=== PATIENT | male | born 1975 | race Caucasian/White ===

== ENCOUNTER → 2019-11-30 12:06 | Outpatient (BNVA) | payer SELFPAY | PROVIDERS: Family Provider Nurse Practitioner; Visit Provider Nurse Practitioner Family | DX: Z20.2 Contact with and (suspected) exposure to infections with a predominantly sexual mode of transmission (principal) | CPT/HCPCS: 87491; 87591 ==

== ENCOUNTER → 2020-04-07 10:09 | Outpatient (BNVA) | payer OTHER, SELFPAY | PROVIDERS: Family Provider Nurse Practitioner; Visit Provider Nurse Practitioner Family | DX: Z20.828 Contact with and (suspected) exposure to other viral communicable diseases (principal); J06.9 Acute upper respiratory infection, unspecified | CPT/HCPCS: 87635 ==

== ENCOUNTER 2023-11-29 17:11 | Emergency (ER) | payer SELFPAY ==
[2023-11-29 17:19] VITALS: BP 146/89; PULSE 108; RESP 24; TEMP 36.6; O2SAT 98; BMI 29.8
--- NOTE | 2023-11-29 17:28 | XRR_ITS ---
PROCEDURE INFORMATION: Exam: XR Left Knee Exam date and time: 11/29/2023 5:41 PM Age: 48 years old Clinical indication: Injury or trauma; Other: Man vs saw; Patella or knee; Foreign body involvement not specified; Injury details: Lt knee pain; Laceration to medial left knee; Man vs chainsaw; Additional info: Chainsaw laceration TECHNIQUE: Imaging protocol: Radiologic exam of the left knee. Views: 3 views. COMPARISON: No relevant prior studies available. FINDINGS: Bones/joints: No acute fractures or subluxations. Soft tissues: Laceration to the medial knee. No radiopaque foreign bodies. XR/XR knee LT 3V* [id number] IMPRESSION: 1. No acute fractures or subluxations. 2. Laceration to the medial knee. No radiopaque foreign bodies.
--- NOTE | 2023-11-29 17:44 | ED_ITS ---
Documented by User: Stevie Mcdonald DO 12/01/23 13:30 HPI - Wound/Laceration General: Chief Complaint: Wound/Laceration Stated Complaint: left leg injury Time Seen by Provider: 11/29/23 18:37 History of Present Illness: 48-year-old male who presents emergency room after a chainsaw accident. He hit himself with a chainsaw as it was running on the left anterior medial knee. No other injuries. Is unsure of his last tetanus shot. No active bleeding. Related Data Previous Rx's Medication Instructions Recorded doxycycline hyclate 100 mg tablet 100 mg PO BID 7 days #14 tabs 11/29/23 ketorolac 10 mg tablet 10 mg PO TID PRN pain #10 tabs 11/29/23 Allergies Allergy/AdvReac Type Severity Reaction Status Date / Time No Known Allergies Allergy Verified 11/29/23 17:22 [facility] ED PFSH: Social History Smoking and tobacco/nicotine status: current every day tobacco/nicotine user Current gender identity: Male Physical Exam Narrative: EXAM NARRATIVE: Full-thickness laceration anterior medial knee. There is some devascularized tissue at the center of the wound. Wound is 8 cm in length Procedures Laceration Laceration 1: Site: lower extremity (Anterior knee) Side (If applicable): left Description: irregular and contaminated Depth: simple, single layer Local Anesthetic: with epi Pre-repair: wound explored, irrigated extensively, deep structures intact and extensive debridement Skin layer closed with: nylon Size (cm): 4-0 Number of sutures: 1 Technique: running Course Vital Signs: Vital signs: Vital Signs Temperature 97.8 F 11/29/23 17:19 Pulse Rate 88 11/29/23 18:40 Respiratory Rate 20 H 11/29/23 17:58 Blood Pressure 155/98 11/29/23 18:40 Pulse Oximetry 96 11/29/23 18:40 Oxygen Delivery Me thod Room Air 11/29/23 17:19 MDM - Wound/Laceration Medical Decision Making Care signed out to Dr. Gatica at change of shift. See final notes for diagnosis and disposition. Wound irrigated extensively with sterile water. Margins cleaned with Betadine and peroxide. Sutures are in place. He tolerated well. Bandaged. Crutches for wb. he has some at home. sutures out in 10d or so. he received ancef here. minda for home Lab Data Radiology Impressions Knee X-Ray 11/29/23 17:28 IMPRESSION: 1. No acute fractures or subluxations. 2. Laceration to the medial knee. No radiopaque foreign bodies. Discharge Plan Discharge Patient Disposition: Home Clinical Impression: Laceration of knee, left Condition: Stable Prescriptions: New ketorolac 10 mg tablet 10 mg PO TID PRN (Reason: pain) Qty: 10 0RF doxycycline hyclate 100 mg tablet 100 mg PO BID 7 Days Qty: 14 0RF Discharge Orders: Discharge ED (Routine); Ordered 11/29/23 Ordered By: Cuco Gatica Referrals: Wendy Bains, GENERAL TELLER-C [Family Provider] - 7-10 days Patient Instructions: Laceration (ED), Opioid Safety, Pain Management Activity Restrictions/Additional Instructions: Keep wound clean and dry for 24 hours, then you may wash with soap and running water. Do not submerge in a tub, pool, roman, etc. Sutures should come out in 10 days or so. Antibiotics as directed. Crutch as tolerated for weightbearing until pain improves. Limit your squatting, knee bending while sutures are in to prevent breakage. Coding Level of Care Code ED Handkerchief Cutter for Chg Fwd Documented by User: Cuco Gatica DO 11/29/23 18:46 HPI - Wound/Laceration General: Chief Complaint: Wound/Laceration Stated Complaint: left leg injury Time Seen by Provider: 11/29/23 18:37 Related Data Previous Rx's Medication Instructions Recorded doxycycline hyclate 100 mg tablet 100 mg PO BID 7 days #14 tabs 11/29/23 ketorolac 10 mg tablet 10 mg PO TID PRN pain #10 tabs 11/29/23 Allergies Allergy/AdvReac Type Severity Reaction Status Date / Time No Known Allergies Allergy Verified 11/29/23 17:22 [facility] ED PFSH: Social History Smoking and tobacco/nicotine status: current every day tobacco/nicotine user Current gender identity: Male Procedures Laceration Laceration 1: Skin layer closed with: other (prolene) Size (cm): 3-0 Number of sutures: 6 Technique: simple, interrupted Course Vital Signs: Vital signs: Vital Signs Temperature 97.8 F 11/29/23 17:19 Pulse Rate 88 11/29/23 18:40 Respiratory Rate 20 H 11/29/23 17:58 Blood Pressure 155/98 11/29/23 18:40 Pulse Oximetry 96 11/29/23 18:40 Oxygen Delivery Me thod Room Air 11/29/23 17:19 MDM - Wound/Laceration Medical Decision Making Wound irrigated extensively with sterile water. Margins cleaned with Betadine and peroxide. Sutures are in place. He tolerated well. Bandaged. Crutches for wb. he has some at home. sutures out in 10d or so. he received ancef here. minda for home Lab Data Radiology Impressions Knee X-Ray 11/29/23 17:28 IMPRESSION: 1. No acute fractures or subluxations. 2. Laceration to the medial knee. No radiopaque foreign bodies. All radiology interpretation(s) finalized by discharge Discharge Plan Discharge Patient Disposition: Home Clinical Impression: Laceration of knee, left Condition: Stable Prescriptions: New ketorolac 10 mg tablet 10 mg PO TID PRN (Reason: pain) Qty: 10 0RF doxycycline hyclate 100 mg tablet 100 mg PO BID 7 Days Qty: 14 0RF Discharge Orders: Discharge ED (Routine); Ordered 11/29/23 Ordered By: Cuco Gatica Referrals: Wendy Bains FNP-C [Family Provider] - 7-10 days Patient Instructions: Laceration (ED), Opioid Safety, Pain Management Activity Restrictions/Additional Instructions: Keep wound clean and dry for 24 hours, then you may wash with soap and running water. Do not submerge in a tub, pool, roman, etc. Sutures should come out in 10 days or so. Antibiotics as directed. Crutch as tolerated for weightbearing until pain improves. Limit your squatting, knee bending while sutures are in to prevent breakage. Coding Level of Care Code ED Handkerchief Cutter for Raza Florian
[2023-11-29] MEDS: ceFAZolin 1,000 mg SDV 1000 MG IVP (17:57)
[2023-11-29 17:58] VITALS: RESP 20; O2SAT 98
[2023-11-29] MEDS: morphine 4 mg/mL SDV 1 mL IVP (17:58)
[2023-11-29] MEDS: lidocaine-epi 1% 20 mL INJ INJECTION (17:59)
[2023-11-29] MEDS: ondansetron 2 mg/ML SDV 2 mL 4 MG IVP (17:59)
[2023-11-29 18:40] VITALS: BP 155/98; PULSE 88; O2SAT 96
== END 2023-11-29 18:48 | disposition home or self-care (01) ==
PROVIDERS: Emergency Provider Emergency Medicine; Family Provider Nurse Practitioner
DX: S81.012A Laceration without foreign body, left knee, initial encounter (principal); Z72.0 Tobacco use; W29.3XXA Contact with powered garden and outdoor hand tools and machinery, initial encounter
CPT/HCPCS: 12034; 73562; 96374; 96375; 99284; J0690; J2270; J2405

== ENCOUNTER 2024-04-04 13:21 | Emergency (ER) | payer MEDICAID, SELFPAY ==
[2024-04-04 13:29] VITALS: BP 177/101; PULSE 104; RESP 18; TEMP 36.6; O2SAT 99; BMI 29.9
--- NOTE | 2024-04-04 14:37 | ED_ITS ---
HPI - Skin/Abscess/Foreign Bdy General: Chief complaint: Skin/Abscess/Foreign Body Stated complaint: sore on lft arm Time Seen by Provider: 04/04/24 14:27 Source: patient Mode of arrival: ambulatory Limitations: no limitations History of Present Illness: 48yo male presents with family for evalu ation of increased redness and swelling of the left forearm. Patient reports that he has had a wound to the area for 6 days. He is not sure what initially caused the wound. states that he was seen at urgent care 2 days ago started on Bactrim. Reports that they did not open it at that time as it was very hard. States he was advised to have it reevaluated if he did have increased swelling or pain. Patient reports that his left hand has been swollen today. States that he is left-hand dominant. He reports that he has not felt good, but has not had a fever. States tetanus is up-to-date. He denies any other concerns at this time. Associated symptoms: Deny chills or fever(s) Related Data Previous Rx's Medication Instructions Recorded ketorolac 10 mg tablet 10 mg PO TID PRN pain #10 tabs 11/29/23 mupirocin 2 % topical ointment 1 applic topical BID #22 grams 04/02/24 cephalexin 500 mg capsule 500 mg PO Q6H 7 days #28 caps 04/04/24 sulfamethoxazole 800 2 tab PO BID 7 days #28 tabs 04/04/24 mg-trimethoprim 160 mg tablet Allergies Allergy/AdvReac Type Severity Reaction Status Date / Time No Known Allergies Allergy Verified 04/04/24 13:34 Review of Systems Const: Denies: fever(s) or chills Skin/Breast: Reports: erythema (Left forearm) [facility] ED PFSH: Social History Smoking and tobacco/nicotine status: never used tobacco/nicotine Current gender identity: Male Physical Exam Const: COMMON NORMALS: no acute distress, patient oriented x3, healthy appearing and alert OTHER: Patient is sitting upright on the side of the stretcher in no acute distress. He is able to give history with no difficulty. He is interactive with exam appropriately. Family is at bedside HENMT: COMMON NORMALS: normocephalic HEAD & SCALP: normocephalic Eye: GENERAL EYE: appearance normal, both eyes and all related structures Chest: CHEST: Yes Symmetrical chest wall rise Resp: COMMON NORMALS: normal respiratory effort Neuro: COMMON NORMALS: patient oriented x3 SENSORIUM/ORIENTATION: Yes alert Skin: LESIONS: lesion noted (left forearm, erythema, swelling, tenderness) Procedures Abscess I/D Site: upper extremity (forearm) Side (if applicable): left Sedation/analgesia: none Local Anesthetic: lidocaine 1% and with epi Amount of anesthesia used (mL): 4 Technique: incised with #11 blade Amount of fluid expressed (mL): 5 Irrigation: Yes Packing used?: none Course Vital Signs: Vital signs: Vital Signs Temperature 97.9 F 04/04/24 13:29 Pulse Rate 104 H 04/04/24 13:29 Respiratory Rate 18 04/04/24 13:29 Blood Pressure 177/101 04/04/24 13:29 Pulse Oximetry 99 04/04/24 13:29 Oxygen Delivery Me thod Room Air 04/04/24 13:29 MDM - Skin/Abscess/Foreign Bdy Medicial Decision Making 48yo male here with family for evaluation of increased redness and swelling of t he left forearm. Patient reports that he has had a wound to the area for 6 days. States that he was seen at urgent care 2 days ago started on Bactrim. Reports that they did not open it at that time as it was very hard. States he was advised to have it reevaluated if he did have increased swelling or pain. Patient reports that his left hand has been swollen today. States that he is left-hand dominant. He reports that he has not felt good, but has not had a fever. States tetanus is up-to-date. He denies any other concerns at this time. Patient is nontoxic in appearance. Vital signs are stable. Will proceed with I&D and wound culture. Purulent drainage noted with I&D, wound culture collected. Will increase Bactrim dosage as well as begin cephalexin for full coverage. Discussed warm compress with patient and family. Advised to continue to monitor for any worsening. Recommend follow-up with primary care in 2 days for recheck. Recommend returning to the emergency department if any rapid worsening, onset of fever associated with worsening, and as needed. Patient states understanding has no further questions or concerns at this time. Differential Diagnosis Likely urticaria Medical Records I reviewed the patient's medical records. No radiology studies performed this visit Discharge Plan Discharge Patient Disposition: Home Clinical Impression: Abscess of forearm, left Condition: Stable Prescriptions: New sulfamethoxazole-trimethoprim 800-160 mg tablet 2 tab PO BID 7 Days Qty: 28 0RF cephalexin 500 mg capsule 500 mg PO Q6H 7 Days Qty: 28 0RF Discontinued sulfamethoxazole-trimethoprim [Bactrim DS] 800-160 mg tablet 1 tab PO BID 10 Days Qty: 20 0RF No Action mupirocin 2 % ointment 1 applic topical BID Qty: 22 0RF ketorolac 10 mg tablet 10 mg PO TID PRN (Reason: pain) Qty: 10 0RF Discharge Orders: Discharge ED (Routine); Ordered 04/04/24 Ordered By: Salinas Zelaya Referrals: Wendy Bains, COMPANY MANAGER-C [Family Provider] - Discharge Diet: Usual diet Discharge Activity: Resume usual activity Patient Instructions: Abscess (ED) Activity Restrictions/Additional Instructions: We have changed your Bactrim to two tablets twice daily. We have also added cephalexin for increased antibiotic coverage. The wound culture is currently pending and will tell us what the bacteria is that is growing and if we need to change the antibiotic Apply a warm compress for 5 to 10 minutes at a time at least 3 times a day to help encourage drainage from the wound Avoid submersion of the wound under any water until it is healed Follow-up with primary care in 2 days for wound recheck, sooner if needed Return to the emergency department if any rapid worsening symptoms, onset of fever associated with worsening, and as needed Coding Level of Care Code ED Talent Acquisition Associate for Raza Florian
[2024-04-04] MEDS: lidocaine-epi 1% 20 mL INJ 4 ML INJECTION (14:55)
== END 2024-04-04 15:36 | disposition home or self-care (01) ==
PROVIDERS: Emergency Provider Nurse Practitioner; Family Provider Nurse Practitioner
DX: L02.414 Cutaneous abscess of left upper limb (principal)
CPT/HCPCS: 10060; 87070; 87077; 87186; 99283

== ENCOUNTER 2024-07-27 11:42 | Emergency (ER) | payer MEDICAID, SELFPAY ==
[2024-07-27 11:46] VITALS: BP 160/91; PULSE 97; RESP 24; O2SAT 98
--- NOTE | 2024-07-27 11:47 | XRR_ITS ---
PROCEDURE INFORMATION: Exam: XR Chest Exam date and time: 07/27/2024 12:09 PM Age: 49 years old Clinical indication: Pain; Angina pectoris; Additional info: Chest pain TECHNIQUE: Imaging protocol: Radiologic exam of the chest. Views: 1 view. COMPARISON: No relevant prior studies available. FINDINGS: Lungs: Unremarkable. No consolidation. Pleural spaces: Unremarkable. No pleural effusion. No pneumothorax. Heart/Mediastinum: Unremarkable. No cardiomegaly. Bones/joints: Unremarkable. XR/XR chest 1V portable [id number] IMPRESSION: No acute findings.
--- NOTE | 2024-07-27 11:48 | ECG_ITS ---
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 Measurements Intervals [place] Rate: 96 P: 71 IL: 130 QRS: 62 QRSD: 117 T: 81 QT: 363 QTc: 460 Interpretive Statements SINUS RHYTHM MODERATE INTRAVENTRICULAR CONDUCTION DELAY [110+ ms QRS DURATION] No previous ECG available for comparison Electronically Signed On 07-28-2024 17:45:53 CDT by Heidy Wang M.D. [id number]
[2024-07-27 11:50] VITALS: TEMP 36.3
--- NOTE | 2024-07-27 11:59 | W.ED.CHESTPA ---
HPI - Chest Pain General: Chief Complaint: Chest Pain Stated Complaint: chest pain Time Seen by Provider: 07/27/24 11:47 Source: patient Mode of arrival: ambulatory Limitations: no limitations History of Present Illness: Patient is a 49-year-old male who presents to ED today for medical evaluation. Patient states over the past 6 to 7 months he has been having intermittent episodes of chest pain. Patient states he has not been able to identify any alleviating or worsening factors to his discomfort/episodes. They do not seem to be brought on by exertion. He does not feel overly short of breath. He states today, he was sitting in a drive-through at [facility] when he began developing chest pain and felt like his ankles were swelling and he began feeling hot and flushed . He states the symptoms were new thus prompting his medical evaluation today. He states he has not sought any form of medical evaluation over the past 6 to 7 months for symptoms. He does report daily alcohol use reporting 2-3 shots of hard alcohol daily. He does admit to daily marijuana use. When asked about drug use he states yes but not any recently . No known PMH-states I don't like going to doctors . MD complaint: chest pain Onset (ago): month(s) (6-7 months) Timing of current episode: episodic Prior episodes: Yes Pain location: substernal Pain radiation: none Relieving factors: nothing Exacerbating factors: nothing Associated symptoms: Deny abdominal pain, dyspnea, fever(s), nausea, palpitations, syncope or vomiting Treatment prior to arrival: none Risk Factors: Coronary artery disease risk factors: none Thoracic aortic dissection risk factors: none Related Data Home Medications ?Medication ?Instructions ?Recorded ?Confirmed aspirin 81 mg tablet,delayed 162 mg PO DAILY pain 07/27/24 07/27/24 release (Arlyn Low Dose Aspirin) tadalafil 10 mg tablet See Rx Instructions .Route .COMPLEX 07/27/24 07/27/24 Allergies Allergy/AdvReac Type Severity Reaction Status Date / Time No Known Allergies Allergy Verified 04/04/24 13:34 Review of Systems Const: Denies: fever(s), chills, body aches, fatigue or malaise Eyes: Denies: change in vision, blurry vision, floaters or seeing flashes Card: Reports: chest pain, edema and swelling of feet/ankles; Denies: palpitations, irregular heart rhythm, lightheadedness, syncope, pre-syncope, dyspnea on exertion, orthopnea, leg pain with exertion or acrocyanosis Resp: Denies: dyspnea, productive cough, non-productive cough or pain on inspiration GI: Denies: abdominal pain, nausea, vomiting, heartburn or diarrhea : Denies: difficulty urinating or dysuria Musc: Reports: extremity swelling; Denies: neck pain, back pain, extremity pain, joint pain, joint swelling or joint redness Skin/Breast: Reports: erythema; Denies: rash Neuro: Denies: headache(s), numbness in extremities, weakness in extremities, sensory changes or dizziness PFSH ED PFSH: Social History Smoking and tobacco/nicotine status: never used tobacco/nicotine Current gender identity: Male Physical Exam Const: COMMON NORMALS: no acute distress, patient oriented x3, no limitations, alert and well nourished GENERAL APPEARANCE: cooperative NUTRITIONAL APPEARANCE: overweight ORIENTATION/CONSCIOUSNESS: Yes awake, Yes oriented to person, Yes oriented to place and Yes oriented to time HENMT: COMMON NORMALS: normocephalic and atraumatic HEAD & SCALP: normal to inspection, normocephalic and atraumatic FACE & SINUS: normal facial exam Eye: GENERAL EYE: appearance normal, both eyes and all related structures Neck/C-Spine: COMMON NORMALS: full ROM, no lymphadenopathy, supple, no meningeal signs and no JVD Chest: COMMONS NORMALS: normal inspection of the chest and normal palpation of entire chest wall Resp: COMMON NORMALS: normal respiratory effort and clear to auscultation bilaterally AUSCULTATION: clear to auscultation bilaterally Cardio: COMMON NORMALS: no JVD, regular rate and regular rhythm RATE: regular rate RHYTHM: regular rhythm GI: COMMON NORMALS: Normal to inspection, nondistended, normoactive bowel sounds present, Soft to palpation, non-tender, No hepatosplenomegaly present and no masses INSPECTION: Yes normal to inspection and Yes other (central obesity) AUSCULTATION: Yes normoactive bowel sounds PALPATION: Yes Soft to palpation, No Tenderness to palpation present (GI), No Guarding due to palpation present (GI), No Rigid due to palpation and Yes No hepatosplenomegaly present : COMMON NORMALS: Yes no CVA tenderness BLADDER/KIDNEY EXAM: Yes no CVA tenderness Back/Pelvis: COMMON NORMALS: no CVA tenderness and thoracic and lumbar spine normal to inspection Extremity: COMMON NORMALS: normal to inspection, full ROM, capillary refill normal, no joint enlargement, no clubbing, cyanosis or edema, no calf tenderness and no pedal edema GENERAL: Yes normal exam except as noted Neuro: COMMON NORMALS: patient oriented x3, moves all extremities, no focal motor deficits and no sensory deficits noted SENSORIUM/ORIENTATION: Yes alert, Yes oriented to person, Yes oriented to place and Yes oriented to time MENINGEAL SIGNS: Yes no meningeal signs Course Vital Signs: Vital signs: Vital Signs Temperature 97.4 F L 07/27/24 11:50 Pulse Rate 88 07/27/24 12:43 Respiratory Rate 16 07/27/24 12:43 Blood Pressure 140/91 07/27/24 12:43 Pulse Oximetry 97 07/27/24 12:43 Oxygen Delivery Me thod Room Air 07/27/24 11:46 MDM - Chest Pain Medical Decision Making Clinically appears in no acute distress. He was slightly hypertensive upon arrival but this did improve without intervention. Blood work today is overall nonactionable. He has a normal troponin. Normal BNP. EKG is nonischemic. CXR is unremarkable. Tox screen is positive for amphetamines. He does admit to using a few days ago. Alcohol is 31. Admits to daily alcohol use. Discussed possibility of gastritis. He was given GI cocktail that did not overly help with symptoms. We did discuss from an emergency standpoint, he is stable for discharge. I will have case management reach out to him and set him up with a primary care provider. Medical Records I reviewed the patient's medical records. Lab Data I reviewed the patient's lab results. 07/27/24 12:09 07/27/24 12:09 Laboratory Results WBC 7.92 10^3/uL (3.29-11.43) 07/27/24 12:09 RBC 4.74 10^6/uL (3.85-5.65) 07/27/24 12:09 Hgb 14.00 g/dL (11.27-16.99) 07/27/24 12:09 Hct 44.1 % (37-53) 07/27/24 12:09 MCV 93.0 fl (82-101) 07/27/24 12:09 MCH 29.5 pg (27-33) 07/27/24 12:09 MCHC 31.7 g/dL (30-55) 07/27/24 12:09 RDW 13.0 % (12.1-15.1) 07/27/24 12:09 Plt Count 270 10^3/cmm (157-399) 07/27/24 12:09 MPV 10.0 fL (7.4-10.4) 07/27/24 12:09 Neut % (Auto) 48.4 % 07/27/24 12:09 Lymph % (Auto) 40.3 % 07/27/24 12:09 Alexander % (Auto) 8.3 % 07/27/24 12:09 Eos % (Auto) 2.1 % 07/27/24 12:09 Baso % (Auto) 0.6 % 07/27/24 12:09 Neut # (Auto) 3.83 10^3/uL (1.8-7.7) 07/27/24 12:09 Lymph # (Auto) 3.2 10^3/uL (0.8-4.8) 07/27/24 12:09 Alexander # (Auto) 0.7 10^3/uL (0.2-0.9) 07/27/24 12:09 Eos # (Auto) 0.2 10^3/uL (0.0-0.8) 07/27/24 12:09 Baso # (Auto) 0.1 10^3/uL (0.0-0.1) 07/27/24 12:09 Nucleated RBC % (auto) 0 % 07/27/24 12:09 Nucleated RBCs # 0.0 /100WBC 07/27/24 12:09 Sodium 140 mmol/L (136-145) 07/27/24 12:09 Potassium 3.6 mmol/L (3.5-5.1) 07/27/24 12:09 Chloride 103 mmol/L (98-107) 07/27/24 12:09 Carbon Dioxide 24 mmol/L (22-29) 07/27/24 12:09 Anion Gap 16.6 (5-19) 07/27/24 12:09 BUN 18 mg/dL (6-20) 07/27/24 12:09 Creatinine 0.9 mg/dL (0.7-1.2) 07/27/24 12:09 GFR Calculation 90.4 mL/min (90-130) 07/27/24 12:09 Glucose 113 mg/dL (65-115) 07/27/24 12:09 Calculated Osmolality 293 mOsm/kg (285-295) 07/27/24 12:09 Calcium 9.1 mg/dL (8.5-10.5) 07/27/24 12:09 Total Bilirubin 0.4 mg/dL (0.15-1.2) 07/27/24 12:09 AST 24 U/L (0-40) 07/27/24 12:09 ALT 29 U/L (0-41) 07/27/24 12:09 Alkaline Phosphatase 74 U/L (40-130) 07/27/24 12:09 Troponin T Baseline < 6 ng/L (0-15) 07/27/24 12:09 NT-Pro-B Natriuret Pep < 36 pg/mL (0-125) 07/27/24 12:09 Total Protein 7.1 g/dL (6.6-8.7) 07/27/24 12:09 Albumin 4.2 g/dL (3.5-5.2) 07/27/24 12:09 Globulin 2.9 g/dL (1.3-4.6) 07/27/24 12:09 Urine Opiates Screen Negative ng/mL (Negative) 07/27/24 12:16 Ur Barbiturates Screen Negative ng/mL (Negative) 07/27/24 12:16 Ur Phencyclidine Scrn Negative ng/mL (Negative) 07/27/24 12:16 Ur Amphetamines Screen Positive ng/mL (Negative) H 07/27/24 12:16 U Benzodiazepines Scrn Negative ng/mL (Negative) 07/27/24 12:16 Urine Cocaine Screen Negative ng/mL (Negative) 07/27/24 12:16 U Marijuana (THC) Screen Negative ng/mL (Negative) 07/27/24 12:16 Ethyl Alcohol 31 mg/dL (0-10) H 07/27/24 12:09 XR interpretation done by ED provider, pending radiology final review Discharge Plan Discharge Patient Disposition: Home Clinical Impression: Intermittent chest pain Condition: Stable Prescriptions: No Action aspirin [Arlyn Low Dose Aspirin] 81 mg Tablet,Delayed Release (Dr/Ec) 162 mg PO DAILY tadalafil 10 mg tablet See Rx Instructions .ROUTE .COMPLEX Rx Instructions: TAKE 1 TABLET BY MOUTH 1 HOUR BEFORE SEXUAL ACTIVITY NEEDED. DO NOT TAKE MORE THAN 1 TIME IN 48 HOURS. THIS IS NOT A DAILY MEDICINE Discharge Orders: Discharge ED (Routine); Ordered 07/27/24 Ordered By: Agnes Gaytan Referrals: Wendy Bains, MANINDER-C [Primary Care Provider, Family Practice] Patient Instructions: Chest Pain (DC) Activity Restrictions/Additional Instructions: As we discussed, case management should reach out to you this week to help set you up with your follow-up primary care appointment. You may return to the emergency department at anytime for worsening chest pain, shortness of breath, difficulty breathing, generally feeling worse or unwell, or any other concerns you may have. Print Language: Tongan Coding Level of Care Code ED Scientific Informatics Project Leader for Raza Florian
[2024-07-27 12:15] LABS: Basophils # 0.1 10^3/uL (0.0-0.1); Basophils % 0.6 %; Eosinophils # 0.2 10^3/uL (0.0-0.8); Eosinophils % 2.1 %; Hematocrit 44.1 % (37-53); Lymphocytes # 3.2 10^3/uL (0.8-4.8); Lymphocytes % 40.3 %; Mean Corpuscular HGB Conc 31.7 g/dL (30-55); Mean Corpuscular Hemoglobin 29.5 pg (27-33); Monocytes # 0.7 10^3/uL (0.2-0.9); Monocytes % 8.3 %; Neutrophils # 3.83 10^3/uL (1.8-7.7); Neutrophils % 48.4 %; Nucleated Red Blood Cells % 0 %; Platelet Count 270 10^3/cmm (157-399); Red Blood Count 4.74 10^6/uL (3.85-5.65); White Blood Count 7.92 10^3/uL (3.29-11.43)
[2024-07-27 12:31] LABS: Troponin(5th) Baseline < 6 ng/L (0-15)
[2024-07-27 12:43] VITALS: BP 140/91; PULSE 88; RESP 16; O2SAT 97
[2024-07-27 12:46] LABS: Alanine Aminotransferase 29 U/L (0-41); Albumin Level 4.2 g/dL (3.5-5.2); Alcohol Level 31 mg/dL (0-10); Alkaline Phosphatase 74 U/L (40-130); Anion Gap 16.6 (5-19); Aspartate Amino Transferase 24 U/L (0-40); Blood Urea Nitrogen 18 mg/dL (6-20); Calcium 9.1 mg/dL (8.5-10.5); Carbon Dioxide 24 mmol/L (22-29); Chloride 103 mmol/L (98-107); Creatinine Clr Calc Pharmacy 122.9098; Globulin 2.9 g/dL (1.3-4.6); Glomerular Filtration Rate 90.4 mL/min (90-130); Glucose 113 mg/dL (65-115); NT Pro B Type Natriuretic Pept < 36 pg/mL (0-125); Osmolality Calculated 293 mOsm/kg (285-295); Potassium 3.6 mmol/L (3.5-5.1); Sodium 140 mmol/L (136-145); Total Bilirubin 0.4 mg/dL (0.15-1.2); Total Protein 7.1 g/dL (6.6-8.7)
[2024-07-27] MEDS: lidocaine 2% viscous 15 ML, aluminum-mag hydrox-simethicon 30 ML, sucralfate oral liq 1 GM PO (12:49)
[2024-07-27 12:50] LABS: Amphetamines Screen Urine Positive (Negative); Barbiturates Screen Urine Negative (Negative); Benzodiazepines Screen Urine Negative (Negative); Cocaine Screen Urine Negative (Negative); Opiate Screen Urine Negative (Negative); PCP Screen Urine Negative (Negative); THC Screen Urine Negative (Negative)
[2024-07-27 13:04] VITALS: PULSE 89; RESP 16; O2SAT 97
--- NOTE | 2024-07-28 09:52 | DCPLANNER ---
Message sent to PCP for follow up- Clinically appears in no acute distress. He was slightly hypertensive upon arrival but this did improve without intervention. Blood work today is overall nonactionable. He has a normal troponin. Normal BNP. EKG is nonischemic. CXR is unremarkable. Tox screen is positive for amphetamines. He does admit to using a few days ago. Alcohol is 31. Admits to daily alcohol use. Discussed possibility of gastritis. He was given GI cocktail that did not overly help with symptoms. We did discuss from an emergency standpoint, he is stable for discharge. I will have case management reach out to him and set him up with a primary care provider.
== END 2024-07-27 13:22 | disposition home or self-care (01) ==
PROVIDERS: Emergency Provider Physician Assistant; PCP Nurse Practitioner
DX: R07.89 Other chest pain (principal); Z79.82 Long term (current) use of aspirin
CPT/HCPCS: 36415; 71045; 80053; 80306; 80307; 83880; 84484; 85025; 93005; 99285; J9999

== ENCOUNTER 2024-07-31 12:51 | Emergency (ER) | payer MEDICAID, SELFPAY ==
--- NOTE | 2024-07-31 12:56 | XRR_ITS ---
PROCEDURE INFORMATION: Exam: XR Left Hand Exam date and time: 07/31/2024 12:58 PM Age: 49 years old Clinical indication: Left; Lt hand/wrist pain after crushing accident TECHNIQUE: Imaging protocol: Radiologic exam of the left hand. Views: 3 or more views. COMPARISON: No relevant prior studies available. FINDINGS: Bones/joints: Normal. Soft tissues: Normal. XR/XR hand LT min 3V* [id number] IMPRESSION: No acute findings.
[2024-07-31 12:58] VITALS: BP 172/90; PULSE 100; RESP 20; TEMP 36.7; O2SAT 100
--- NOTE | 2024-07-31 13:01 | W.ED.EXTPRO ---
HPI - Extremity Problem General: Chief complaint: Extremity Injury, Upper Stated complaint: left hand injury Time Seen by Provider: 07/31/24 12:56 Source: patient Mode of arrival: ambulatory Limitations: no limitations History of Present Illness: 49-year-old male who states that he had actually hit himself in his left hand with a sledgehammer just before arrival he hit himself in the dorsum aspect rates his pain a 7 out of 10 no laceration denies any other injuries Associated symptoms: Deny chest pain, fever(s) or rash Related Data Home Medications ?Medication ?Instructions ?Recorded ?Confirmed aspirin 81 mg tablet,delayed 162 mg PO DAILY pain 07/27/24 07/27/24 release (Arlyn Low Dose Aspirin) tadalafil 10 mg tablet See Rx Instructions .Route .COMPLEX 07/27/24 07/27/24 Previous Rx's ?Medication ?Instructions ?Recorded naproxen 500 mg tablet (Naprosyn) 500 mg PO BID PRN pain #20 tabs 07/31/24 Allergies Allergy/AdvReac Type Severity Reaction Status Date / Time No Known Allergies Allergy Verified 04/04/24 13:34 Review of Systems Const: Denies: fever(s), chills, body aches or change in appetite ENMT: Denies: throat pain or dental pain Card: Denies: chest pain Resp: Denies: dyspnea GI: Denies: abdominal pain, nausea, vomiting or diarrhea Musc: Reports: extremity pain; Denies: neck pain or back pain Skin/Breast: Denies: rash Neuro: Denies: headache(s) PFS ED PFSH: Social History Smoking and tobacco/nicotine status: never used tobacco/nicotine Current gender identity: Male Physical Exam Const: COMMON NORMALS: no acute distress, patient oriented x3 and healthy appearing HENMT: COMMON NORMALS: normocephalic and atraumatic HEAD & SCALP: normocephalic and atraumatic Eye: COMMON NORMALS: conjunctivae normal CONJUNCTIVA: Yes conjunctivae normal Neck/C-Spine: COMMON NORMALS: full ROM and supple Chest: COMMONS NORMALS: normal inspection of the chest Resp: COMMON NORMALS: normal respiratory effort Cardio: COMMON NORMALS: regular rate RATE: regular rate Extremity: NARRATIVE EXTREMITY EXAM: Tenderness to dorsum of left hand no lacerations Neuro: COMMON NORMALS: patient oriented x3, moves all extremities and no focal motor deficits Psych: COMMON NORMALS: mental status grossly normal, Normal thought process present and cooperative THOUGHT PROCESS: Normal thought process present Skin: COMMON NORMALS: no rashes or lesions noted and no wounds GENERAL SKIN EXAM: no rashes or lesions noted Course Vital Signs: Vital signs: Vital Signs Temperature 98.0 F 07/31/24 12:58 Pulse Rate 100 07/31/24 12:58 Respiratory Rate 20 H 07/31/24 12:58 Blood Pressure 172/90 07/31/24 12:58 Pulse Oximetry 100 07/31/24 12:58 MDM - Extremity (Nontraumatic) Medical Decision Making Patient presents here with hand contusion x-ray shows no fractures. He is well-appearing here stable for discharge follow-up PCP return if worsening Medical Records I reviewed the patient's medical records. XR interpretation done by ED provider, pending radiology final review ED provider radiology interpretation(s): xr L hand: no acute fx Discharge Plan Discharge Patient Disposition: Home Clinical Impression: Contusion of hand, left Condition: Stable Prescriptions: New naproxen [Naprosyn] 500 mg tablet 500 mg PO BID PRN (Reason: pain) Qty: 20 0RF No Action aspirin [Arlyn Low Dose Aspirin] 81 mg Tablet,Delayed Release (Dr/Ec) 162 mg PO DAILY tadalafil 10 mg tablet See Rx Instructions .ROUTE .COMPLEX Rx Instructions: TAKE 1 TABLET BY MOUTH 1 HOUR BEFORE SEXUAL ACTIVITY NEEDED. DO NOT TAKE MORE THAN 1 TIME IN 48 HOURS. THIS IS NOT A DAILY MEDICINE Discharge Orders: Discharge ED (Routine); Ordered 07/31/24 Ordered By: Karol Priest Referrals: Wendy Bains FNP-C [Primary Care Provider, Family Practice] - 4-7 days Discharge Diet: Advance as tolerated Discharge Activity: Resume usual activity Patient Instructions: Contusion in Adults (ED) Print Language: Citizen Of [place] Coding Level of Care Code ED Refractory Specialist for Raza Florian
[2024-07-31] MEDS: HYDROcodone-acetaminophen 7.5-325 mg Tablet 1 TAB PO (13:10)
[2024-07-31 13:18] VITALS: BP 153/101; PULSE 98; O2SAT 97
== END 2024-07-31 13:19 | disposition home or self-care (01) ==
PROVIDERS: Emergency Provider Emergency Medicine; PCP Nurse Practitioner
DX: S60.222A Contusion of left hand, initial encounter (principal); Z79.82 Long term (current) use of aspirin; W22.8XXA Striking against or struck by other objects, initial encounter
CPT/HCPCS: 73130; 99283; J9999